=== PATIENT | female | born 1945 | race African-American/Black ===

== ENCOUNTER 2016-07-13 15:28 | Emergency (ER) | payer OTHER ==
[~2016-07-13] VITALS: Ht 162.6 cm; Wt 61.8 kg
[~2016-07-13 15:28] MED LIST: HYDROCODONE-APA1 TA1 PO; MIRALAX17 GM; PERCOCET 5-3251 EACH PO
[2016-07-13 18:52] VITALS: BP 150/80
== END 2016-07-13 19:18 | disposition short-term general hospital (02) ==
LOC: ER 15:28
DX: I60.9 Nontraumatic subarachnoid hemorrhage, unspecified (principal); C90.00 Multiple myeloma not having achieved remission; F17.210 Nicotine dependence, cigarettes, uncomplicated; Z90.89 Acquired absence of other organs; Z92.21 Personal history of antineoplastic chemotherapy; Z91.018 Allergy to other foods; W10.9XXA Fall (on) (from) unspecified stairs and steps, initial encounter; Y93.89 Activity, other specified; Y92.89 Other specified places as the place of occurrence of the external cause; Y99.8 Other external cause status